=== PATIENT | female | born 1990 | race Caucasian/White ===

== ENCOUNTER 2017-10-27 22:42 | Emergency (ER) | payer MEDICAID ==
[~2017-10-27] VITALS: Ht 154.9 cm; Wt 61.2 kg
--- NOTE | 2017-10-27 22:54 | NUR ---
BIB FRIEND FOR OVERDOSE, PT TOOK XANAX X 6, VALIUM X 4 AND ETOH. PT DENIES SUICIDE, STATES, SHE JUST WANTED TO FEEL GOOD
[2017-10-27 23:13] LABS: BASOPHILS % (AUTO) 0.3 % (0.0-2.0); EOSINOPHILS % (AUTO) 2.1 % (0.0-6.0); HEMATOCRIT 38 % (33-45); HEMOGLOBIN 12.7 g/dL (11.5-14.8); LYMPHOCYTES # (AUTO) 2.2 /CMM (0.8-4.8); LYMPHOCYTES % (AUTO) 23.5 % (20.0-44.0); MEAN CORPUSCULAR HGB CONC 34 g/dl (31.0-36.0); MEAN CORPUSCULAR VOLUME 88 fL (82-100); MONOCYTES # (AUTO) 0.5 /CMM (0.1-1.30); MONOCYTES % (AUTO) 5.1 % (2.0-12.0); NEUTROPHILS # (AUTO) 6.5 /CMM (1.8-8.9); PLATELET COUNT (AUTO) 213 /CMM (150-450); RDW COEFFICIENT OF VARIATION 13.1 (11.5-15.0); RED BLOOD CELL COUNT(AUTO) 4.26 MIL/uL (4.0-5.2); WHITE BLOOD COUNT (AUTO) 9.4 K/uL (4.3-11.0)
[2017-10-27 23:24] LABS: CALCIUM, SERUM 8.9 mg/dL (8.5-10.1); CREATININE 0.9 mg/dL (0.6-1.3); POTASSIUM 3.7 mmol/L (3.5-5.1)
[2017-10-27 23:30] LABS: ALBUMIN 3.8 g/dL (3.4-5.0); BILIRUBIN,DIRECT 0.1 mg/dL (0.0-0.2); BILIRUBIN,TOTAL 0.5 mg/dL (0.2-1.0); TOTAL PROTEIN, SERUM 7.4 g/dL (6.4-8.2)
--- NOTE | 2017-10-28 01:44 | NUR ---
SISTER NUMBER ARUN FRIENDS NUMBER [phone]
--- NOTE | 2017-10-28 04:15 | NUR ---
URINE SAMPLE SENT FOR ANALYSIS
[2017-10-28 04:49] LABS: APPEARANCE,URINE SL CLOUDY (CLEAR); BILIRUBIN,URINE NEGATIVE (NEGATIVE); BLOOD, URINE 3+ Ery/uL (NEGATIVE); COLOR,URINE YELLOW (YELLOW); KETONES,URINE TRACE (NEGATIVE); LEUKOCYTE ESTERASE ,URINE NEGATIVE (NEGATIVE); NITRITE, URINE POSITIVE (NEGATIVE); PH,URINE 5.5 (5.0-8.0); PROTEIN,URINE TRACE mg/dl (NEGATIVE); UGLUCOSE NEGATIVE (NEGATIVE); UROBILINOGEN,URINE 0.2 EU/dL (0.2)
[2017-10-28 04:58] LABS: BACTERIA,URINE Rare /HPF (None Seen); SQUAMOUS EPITHELIAL CELL,UR Moderate /HPF (None Seen); WBC,URINE 0-2 /HPF (0-3)
--- NOTE | 2017-10-28 07:29 | NUR ---
CONTACT ADRIANA FRANCIS (SISTER) -- [phone]
--- NOTE | 2017-10-28 08:35 | NUR ---
PAGED NICO LUCASW FOR PSYCH EVAL.
--- NOTE | 2017-10-28 11:48 | NUR ---
ASSUMED CARE OF PT.
--- NOTE | 2017-10-28 11:58 | NUR ---
PT IS GOING TO [facility]. [facility] IS BEING CALLED FOR TRANSPORT.
[2017-10-28 12:02] VITALS: BP 118/72
--- NOTE | 2017-10-28 12:03 | NUR ---
PT HAS JUICE AND WATER AND IS TOLERATING PO WELL.
--- NOTE | 2017-10-28 12:39 | NUR ---
PT TRANSFERRED OUT VIA [facility] TO [facility].
--- NOTE | 2017-10-28 12:42 | NUR ---
CALLING INTAKE AT [facility] @ [place] [phone]
--- NOTE | 2017-10-28 12:44 | NUR ---
REPORT GIVEN TO ZEE LÓPEZ
== END 2017-10-28 12:50 ==
LOC: ER 22:46
DX: R45.851 Suicidal ideations (principal); F13.10 Sedative, hypnotic or anxiolytic abuse, uncomplicated; F10.10 Alcohol abuse, uncomplicated; F32.9 Major depressive disorder, single episode, unspecified
CPT/HCPCS: 36415; 80048-TC; 80076-TC; 80305; 81000-TC; 82962-TC; 84703-TC; 85025-TC; 87086-TC; 87186-TC; A4606; G0480; Z7610